=== PATIENT | male | born 1975 | race Asian ===

== ENCOUNTER 2016-12-27 10:15 | Emergency (ER) | payer OTHER ==
[2016-12-27] MEDS ORDERED: Aspirin Low Dose CHEW TAB* 81 MG PO ONE (10:32)
[2016-12-27 10:45] LABS: Hematocrit 42 % (42-52); Hemoglobin 13.9 g/dl (14.0-18.0); Mean Corpuscular HGB Conc 33 g/dl (31-36); Mean Corpuscular Hemoglobin 27 pg (27-31); Mean Corpuscular Volume 82 fL (80-94); Mean Platelet Volume 9 um3 (7.4-10.4); Red Blood Count 5.13 10^6/ul (4.0-5.4); Red Cell Distribution Width 14 % (10.5-15); White Blood Count 6.3 10^3/ul (3.5-10.8)
[2016-12-27] MEDS ORDERED: NS 0.9% 1000 ML* 3,000 ML IV ONE (10:50)
[2016-12-27 10:58] LABS: Troponin I 0.01 ng/mL (<0.04)
[2016-12-27 11:03] LABS: Albumin 3.7 g/dL (3.2-5.2); BUN/Creatinine Ratio 15.6 (8-20); EGFR African American 96.4 (>60); EGFR Non-African American 74.9 (>60); Globulin 2.8 g/dL (2-4); Potassium 3.8 mmol/L (3.5-5.0); Total Bilirubin 0.6 mg/dL (0.2-1.0); Total Protein 6.5 g/dL (6.4-8.9)
[2016-12-27] MEDS ORDERED: Iohexol 350* (CONTRAST) 500 ML MDV IV ONE (11:08)
--- NOTE | 2016-12-27 12:03 | RAD ---
INDICATION: Chest pain, syncope, travel history. COMPARISON: Correlation is made with a prior chest x-ray study of the same date. TECHNIQUE: A CT angiogram of the chest was performed with intravenous following intravenous injection of 67 ml of Omnipaque 350 nonionic contrast. Contiguous axial sections were obtained from the lung apices through the lung bases. Images were reconstructed in the coronal and sagittal planes. FINDINGS: There is relatively homogeneous opacification of the pulmonary arteries. No intraluminal filling defect or pulmonary embolism is seen. The heart is within normal limits in size. No pericardial effusion is present. The thoracic aorta is normal in caliber. No significant enlarged mediastinal or hilar lymph nodes are seen. There are several small bilateral pulmonary nodules present in the left upper lobe, right lower lobe and right middle lobes measuring up to 5 mm in size. The lungs are otherwise clear. No pleural effusion or pneumothorax is seen. No significant focal osseous abnormality is seen. IMPRESSION: 1. NO EVIDENCE FOR PULMONARY EMBOLISM. 2. SMALL BILATERAL PULMONARY NODULES. RECOMMEND A FOLLOW-UP NONCONTRAST CT OF THE CHEST IN 6 MONTHS TIME TO DEMONSTRATE ABILITY.
[2016-12-27] MEDS ORDERED: Acetaminophen TAB* 325 MG PO PRN (14:07)
[2016-12-27] MEDS ORDERED: NS 0.9% 1000 ML* 1,000 ML IV SCH (14:15)
[2016-12-27 14:43] LABS: TSH (Thyroid Stimulating Horm) 0.76 mcIU/mL (0.34-5.60)
[2016-12-27] MEDS ORDERED: Aspirin TAB* 325 MG PO SCH (15:00)
[2016-12-27 15:24] VITALS: BP 112/64
--- NOTE | 2016-12-27 15:45 | RAD ---
Indication: Syncope. Single frontal view of the chest performed at 1135 hours was reviewed. No prior study is available for comparison. No mediastinal shift is noted. Heart is of normal size and configuration. Lung [place] appear clear. IMPRESSION: NO ACTIVE CARDIOPULMONARY DISEASE IS NOTED.
--- NOTE | 2016-12-27 21:54 | CONS ---
CONSULTATION REPORT: DATE OF CONSULT: 12/27/16 PRIMARY CARE PHYSICIAN: Dr. Gayathri Lewis. REASON FOR CONSULTATION: The patient was recommended for admission by Dr. Briceno due to syncope and chest pain. HISTORY OF PRESENT ILLNESS: Mr. Dlilard is a 41-year-old male with history significant for seasonal allergies only, presented to the hospital after he had near syncopal episode today. The patient stated that he got up in the morning and he was in the kitchen making himself a cup of coffee, but he felt lightheaded ever since he got up. He stated that he was holding a cup of coffee and then, he does not remember anything for a couple of seconds. He stated that he regained consciousness when he found himself stumbling down and spilling the coffee all over the kitchen floor. He managed to sit down and not hit the ground. His prodromal symptoms were lightheadedness, but he denies any shortness of breath or chest pain prior to the event; but after the event occurred, he did have substernal chest pain that was brief and resolved spontaneously. The chest pain was not pleuritic and was substernal, pressure like. When the patient was evaluated in the ED, his blood pressures were in the 80s. He was in sinus bradycardia throughout his evaluation. CT angiogram of the chest was obtained, which ruled out PE and showed multiple small bilateral pulmonary nodules. Dr. Briceno recommended the patient for overnight observation with transthoracic echocardiogram in the morning. PAST MEDICAL HISTORY: Seasonal allergies. MEDICATIONS: As an outpatient include: 1. Nasonex 1 spray nasally daily. 2. Zyrtec 10 mg daily. ALLERGIES: No known drug allergies. FAMILY HISTORY: Positive for the grandfather with heart disease in his 60s. SOCIAL HISTORY: The patient is an medicaid specialist. He does not smoke or drink alcohol. There is no history of illegal drug use. The patient used to run several miles a day, but he lowered it down to 3 times a week since his child was born a year ago. His surrogate decision maker is his , Mrs. Dillard. Please note that the patient also just came back from [place] and his flight was for several hours on 12/25/16. REVIEW OF SYSTEMS: Please see history of present illness. The patient's stated that he had bull game for 2 hours and he was an active participant and then he worked in the yard for several hours yesterday. She thinks that he did not get enough hydration over the course of the past 24 hours. The patient agrees with the . He has not had any syncopal episodes in the past. He denies any chest pain before or after. His exercise tolerance is excellent and he still runs several miles 3 times a week. All the remaining 14 systems were reviewed with the patient and were otherwise negative. PHYSICAL EXAM: Not performed since the patient prefers to discuss all his options and possibility of hospitalization prior to being admitted. DIAGNOSTIC STUDIES/LAB DATA: Sodium of 138, potassium 3.8, chloride 105, carbon dioxide 29, BUN 17, creatinine 1.09. Liver functions unremarkable. Lactic acid 1.4. TSH of 0.76. White blood cell count of 6.3, hemoglobin of 13.9, hematocrit of 42, and platelets of 151. EKG showed sinus tachycardia with elevated J point. No evidence of . CT angiogram of the chest showed no PE, but small bilateral pulmonary nodules. Recommended follow up with chest CT in 6 months. ASSESSMENT AND PLAN: A 41-year-old male with a history of very good exercise tolerance who presents with chest pain and hypotension and near syncope/syncope today. The patient was recommended to stay for overnight observation with transthoracic echocardiogram, monitoring on telemetry monitored bed, and exercise cardiac stress test in the morning. The risks of cardiac arrhythmia and sudden or myocardial infarction were discussed with the patient. Also , the findings of pulmonary nodules on CT angiogram was discussed with the patient. The patient noted that it may be due to benign disease and possibility of coccidioidomycosis due to the patient's recent trip in [place], but also the recommendations of 6-month followup CT of the chest were discussed with the patient. At this point, the patient was aware of the risks and he requested to sign out from the hospital against medical advice. His was present and agreed with the patient's decision. At this point, the patient is going to sign out against medical advice and leave the hospital. TIME SPENT: Approximately 45 minutes were spent on the above-mentioned consultation. CC: Dr. Gayathri Lewis; Dr. Briceno* [id number]/CPS #: [id number] [facility]
[2016-12-28] MEDS ORDERED: Aspirin TAB* 325 MG PO SCH (09:00)
--- NOTE | 2016-12-29 08:26 | ED ---
Maddy Lewis Matthew, scribed for Wesly Briceno MD on 12/27/16 at 1123 . HPI Chest Pain - HPI Summary HPI Summary: A 41 y/o male presents to the ED with chest tightness since 05:15 this morning. He states that he was making coffee this morning, when he felt dizzy and had a syncopal episode, which lasted for a few seconds. He denies trauma. He then sat down and began to have chest pain described as tightness, continuing dizziness, and nausea. The patient denies trauma, rhinorrhea, fever, diaphoresis, chills, diarrhea, vomiting, abdominal pain, urinary retention, black stools, and blood w / stool. The chest pain is unaffected by deep breaths. The patient just returned from [place] on 12/25. The states that patient wasn't drink enough water while in [place]. Yesterday, the patient also mowed the lawn for 1.5 hours. Currently, the patient only takes nasonex. No Hx of HTN, HLD, or diabetes. FHx of CAD. The patient does not smoke or drink. The patient has a Hx of syncopal episode from allergies 15 years ago, but he states that hasn't happened recently after starting nasonex. The patient received aspirin and nitroglcerin by EMS. - History of Current Complaint Chief Complaint: EDChestPainROMI Time Seen by Provider: 12/27/16 10:31 Hx Obtained From: Patient Onset/Duration: Started Hours Ago, Atraumatic, Still Present Time of Onset: 05:15 Timing: Constant Initial Severity: Mild Current Severity: Mild Pain Intensity: 2 Pain Scale Used: 0-10 Numeric Chest Pain Radiates: No Character: Tightness Associated Signs and Symptoms: Positive: Chest Pain - described as tightness, Weakness, Dizziness, Syncope, Nausea, Other: - decreased appetite. Negative: Fever, Chills, Diaphoresis - Allergy/Home Medications Allergies/Adverse Reactions: Allergies Allergy/AdvReac Type Severity Reaction Status Date / Time No Known Allergies Allergy Verified 12/27/16 10:28 Home Medications: Home Medications Cetirizine* [ZyrTEC 10 MG TAB*] 10 mg PO BEDTIME 12/27/16 [History Confirmed 09/14] Mometasone NASAL (NF) [Nasonex (NF)] 1 spray NASAL DAILY 12/27/16 [History Confirmed 12/27/16] PMH/Surg Hx/FS Hx/Imm Hx Previously Healthy: Yes Endocrine/Hematology History: Denies: Hx Diabetes Cardiovascular History: Denies: Hx Hypercholesterolemia, Hx Hypertension Infectious Disease History: No Infectious Disease History: Denies: Traveled Outside the [place] in Last 30 Days - Family History Known Family History: Positive: Cardiac Disease - Social History Alcohol Use: None Substance Use Type: Reports: None Smoking Status (MU): Never Smoked Tobacco Review of Systems Constitutional: Other - decreased appetite Negative: Fever, Chills, Skin Diaphoresis Eyes: Negative Negative: Erythema ENT: Negative Negative: Sore Throat Positive: Chest Pain - described as tightness. Negative: Palpitations Respiratory: Negative Negative: Shortness Of Breath, Cough Positive: Nausea. Negative: Abdominal Pain, Vomiting, Diarrhea Genitourinary: Negative Negative: dysuria, hematuria Musculoskeletal: Negative Negative: Myalgia, Edema Skin: Negative Negative: Rash Neurological: Other - Dizziness Positive: Syncope Psychological: Normal All Other Systems Reviewed And Are Negative: Yes Physical Exam Triage Information Reviewed: Yes Vital Signs On Initial Exam: Initial Vitals Temp Pulse Resp BP Pulse Ox 98.3 F 53 14 99/66 99 12/27/16 10:19 12/27/16 10:19 12/27/16 10:19 12/27/16 10:19 12/27/16 10:19 Vital Signs Reviewed: Yes Appearance: Positive: Well-Appearing, No Pain Distress Skin: Positive: Warm, Dry Head/Face: Positive: Other - Normocephalic; Atraumatic Eyes: Positive: Conjunctiva Clear ENT: Positive: Normal ENT inspection Dental: Negative: Cervical Lymphadenopathy Neck: Positive: No Lymphadenopathy, Other: - Full ROM; No JVD Respiratory/Lung Sounds: Positive: Other - Normal Effort; No respiratory distress. Negative: Rales, Rhonchi, Stridor, Tracheal Deviation, Wheezes Cardiovascular: Positive: RRR, Other - Rhythm regular, rate normal, Heart sounds normal; Intact distal pulses; The pedal pulses are 2+ and symmetric. Radial pulses are 2+ and symmetric. Negative: Murmur Abdomen Description: Positive: Nontender, Soft, Other: - No Rebound. Negative: Distended, Guarding Bowel Sounds: Positive: Present Musculoskeletal: Negative: Edema Left, Edema Right Neurological: Positive: Alert, Oriented to Person Place, Time Psychiatric: Positive: Affect/Mood Appropriate - Mika Coma Scale Coma Scale Total: 15 Diagnostics - Vital Signs Vital Signs Temp Pulse Resp BP Pulse Ox 12/27/16 10:24 98.3 F 54 16 100/69 100 12/27/16 10:23 100/69 12/27/16 10:19 98.3 F 53 14 99/66 99 - Laboratory Result Diagrams: 12/27/16 10:20 12/27/16 10:20 Lab Statement: Any lab studies that have been ordered have been reviewed, and results considered in the medical decision making process. - Radiology CXR Xray Interpretation: No Acute Changes - IMPRESSION: NO ACTIVE CARDIOPULMONARY DISEASE IS NOTED. Radiology Interpretation Completed By: Radiologist - CT CTA Chest CT Interpretation: No Acute Changes - IMPRESSION: 1. NO EVIDENCE FOR PULMONARY EMBOLISM. 2. SMALL BILATERAL PULMONARY NODULES. RECOMMEND A FOLLOW-UP NONCONTRAST CT OF THE CHEST IN 6 MONTHS TIME TO DEMONSTRATE ABILITY. CT Interpretation Completed By: Radiologist - EKG 10:17 Cardiac Rate: Bradycardia - 51 bpm EKG Rhythm: Sinus Bradycardia EKG Interpretation: No STEMI 13:32 Cardiac Rate: Bradycardia - 39 bpm EKG Rhythm: Sinus Bradycardia ST Segment: Normal EKG Interpretation: No STEMI Re-Evaluation - Re-Evaluation First Eval Re-Evaluation Time: 13:40 Change: Improved Comment: The patient's chest pain has resolved. Systolic BP in the 100s. The patient states that he is a runner and his HR is normally in the 40s. Chest Pain Course/Dx - Course Assessment/Plan: A 41 y/o male presents to the ED with chest tightness since 05: 15 this morning. He states that he was making coffee this morning, when he felt dizzy and had a syncopal episode, which lasted for a few seconds. He denies trauma. He then sat down and began to have chest pain described as tightness, continuing dizziness, and nausea. The patient denies trauma, rhinorrhea, fever, diaphoresis, chills, diarrhea, vomiting, abdominal pain, urinary retention, black stools, and blood w/ stool. The chest pain is unaffected by deep breaths. The patient just returned from [place] on 12[place]25. The states that patient wasn't drink enough water while in [place]. Yesterday, the patient also mowed the lawn for 1.5 hours. Currently, the patient only takes Nasonex. No Hx of HTN , HLD, or diabetes. FHx of CAD. The patient does not smoke or drink. Labs were reviewed and show troponin of 0.01. Chest CTA shows no evidence for pulmonary embolism. 2. small bilateral pulmonary nodules. recommend a follow-up noncontrast ct of the chest in 6 months time to demonstrate ability. EKG shows sinus brachycardia at 51 bpm. CXR showed no active cardiopulmonary disease. On re-eval the patients chest pain had resolved. In the ED course, the patient was given Tylenol, aspirin, and IV fluids. Discussed the case with Dr. Edward who will admit the patient into his care. - Diagnoses Provider Diagnoses: SYNCOPE/CP, AMA - Provider Notifications Discussed Care Of Patient With: Dr. Edward (Hospitalist) at 14:06 -- Notified of patient's history and will admit the patient into his services. Discharge - Discharge Plan Condition: Stable Disposition: AGAINST MEDICAL ADVICE Referrals: Gayathri Mayer MD [Primary Care Provider] - The documentation as recorded by the Maddy silvestre Matthew accurately reflects the service I personally performed and the decisions made by , Wesly Briceno MD.
== END 2016-12-27 15:27 | disposition left against medical advice (07) ==
LOC: ED 10:15 → UNDOADMOB 14:07 → MEDTELE 14:07 → ED 15:27
DX: R07.9 Chest pain, unspecified (principal); R55 Syncope and collapse; R91.8 Other nonspecific abnormal finding of lung field; R00.1 Bradycardia, unspecified
CPT/HCPCS: 36415; 71010; 71275; 80053; 83605; 84443; 84484; 85025; 93005; 96360; 96361; 99283; Q9967

== ENCOUNTER 2016-12-31 10:14 | Observation (INO) | payer OTHER ==
[2016-12-31] MEDS: NS 0.9% 1000 ML* 2,000 ML IV ONE ×2 (11:35→12:27)
[2016-12-31 12:03] LABS: Urine Bacteria Absent (Absent); Urine Bilirubin Negative (Negative); Urine Glucose Negative (Negative); Urine Nitrite Negative (Negative)
[2016-12-31 12:05] LABS: Hematocrit 45 % (42-52); Hemoglobin 15.1 g/dl (14.0-18.0); Mean Corpuscular HGB Conc 34 g/dl (31-36); Mean Corpuscular Hemoglobin 27 pg (27-31); Mean Corpuscular Volume 81 fL (80-94); Mean Platelet Volume 9 um3 (7.4-10.4); Red Blood Count 5.54 10^6/ul (4.0-5.4); Red Cell Distribution Width 14 % (10.5-15); White Blood Count 6.4 10^3/ul (3.5-10.8)
[2016-12-31 12:15] LABS: ALT 36 U/L (7-52); AST 22 U/L (13-39); Albumin 4.2 g/dL (3.2-5.2); Alkaline Phosphatase 70 U/L (34-104); Anion Gap 4 mmol/L (2-11); BUN/Creatinine Ratio 15.2 (8-20); Blood Urea Nitrogen 14 mg/dL (6-24); CO2 Carbon Dioxide 27 mmol/L (22-32); Calcium 9.5 mg/dL (8.6-10.3); Chloride 105 mmol/L (101-111); Creatine Kinase 86 U/L (10-223); EGFR African American 117.2 (>60); EGFR Non-African American 91.1 (>60); Glucose 100 mg/dL (70-100); Potassium 3.9 mmol/L (3.5-5.0); Sodium 136 mmol/L (133-145); Total Protein 7.2 g/dL (6.4-8.9)
[2016-12-31 12:33] LABS: TSH (Thyroid Stimulating Horm) 1.15 mcIU/mL (0.34-5.60)
[2016-12-31] MEDS ORDERED: Acetaminophen TAB* 325 MG PO PRN (14:21)
[2016-12-31] MEDS ORDERED: Ondansetron INJ* 2 MG/ML VIAL IV PRN (14:21)
[2016-12-31] MEDS ORDERED: Albuterol 2.5 MG/3 ML NEB.SOL* (0.083%) INH PRN (14:48)
[2016-12-31 14:53] LABS: Alcohol < 10 mg/dL (<10)
--- NOTE | 2016-12-31 15:55 | ED ---
Jackie Lewis Auryana, scribed for Aayush Downs MD on 12/31/16 at 1221 . Dizziness - HPI Summary HPI Summary: 41 year old male presents with dizziness and near syncope starting at 08:50 today at work lasting 5-10 minutes. He reports that when he began to feel dizzy today, he also had an unsteady gait , buzzing in the ears, blurred vision - states vision becomes yellow, palpitations, and neck pain that radiated into the neck. He denies any biting of tongue, urinary incontinence, fever, night sweats, and chills, lightheadedness with sitting up, any weight changes, any spinning sensations or LOC. He has had 3-4 episodes over the past week. He was seen 12/27/16 here at [facility] ; 12/29/16 at [facility]- observation overnight. Negative CT, EKG, Labs, and Echo. Increased HR (140-160) caught on EKG in ambulance ride to [facility]. On tuesday his episode included a few second black out but denies any other episodes with LOC. Reports CP with episode on . Reports that he met with a heart coordinator who found no significant findings. PMHx of palpitations (about 5 years ago - lasted about 3 weeks at that time) and Valley Fever with lung nodules - diagnosed in [place] - denies any respiratory symptoms. He denies an PMHx of seizure, HTN, HLD, DM, or any deafness. FMHx is significant for VT ( father), 'heart issues' (mother), and ocular aneurysm- no family history of seizures. - History Of Current Complaint Stated Complaint: DIZZINESS Time Seen by Provider: 12/31/16 10:35 Hx Obtained From: Patient Last Known Well Date: 12/27/16 Onset/Duration: Still Present Timing: Constant - 08:50 Severity Initially: Mild Severity Currently: Mild Character: Dizzy Associated Signs And Symptoms: Positive: Tinnitus, Palpitations, Unsteady Gait, Visual Changes, Other: - see HPI. Negative: Fever, Chills, Inability to Walk, Slurred Speech Related History: Similar Episode/Dx as - see HPI - Allergies/Home Medications Allergies/Adverse Reactions: Allergies Allergy/AdvReac Type Severity Reaction Status Date / Time No Known Allergies Allergy Verified 12/27/16 10:28 PMH/Surg Hx/FS Hx/Imm Hx Endocrine/Hematology History: Denies: Hx Diabetes Cardiovascular History: Denies: Hx Hypercholesterolemia, Hx Hypertension History: Denies: Hx Renal Disease Infectious Disease History: Denies: Traveled Outside the [place] in Last 30 Days - Family History Known Family History: Positive: Cardiac Disease, Other - ocular aneurysm - Social History Occupation: Employed Full-time Lives: With Family Alcohol Use: None Substance Use Type: Reports: None Smoking Status (MU): Never Smoked Tobacco Review of Systems Positive: Other - unsteay gate. Negative: Fever, Chills Positive: Blurred Vision Positive: Other - tinnitis Positive: Palpitations Respiratory: Negative Gastrointestinal: Negative Genitourinary: Negative Positive: Myalgia Skin: Negative Positive: Syncope - near Psychological: Normal All Other Systems Reviewed And Are Negative: Yes Physical Exam - Summary Physical Exam Summary: The patient is well-nourished in no acute distress and in no acute pain. The skin is warm and dry and skin color reflects adequate perfusion. HEENT: The head is normocephalic and atraumatic. The pupils are equal and reactive. The conjunctivae are clear and without drainage. Nares are patent and without drainage. Mouth reveals moist mucous membranes and the throat is without erythema and exudate. The external ears are intact. The ear canals are patent and without drainage. The tympanic membranes are intact. Neck is supple with full range of motion and non-tender. There are no carotid bruits. There is no neck vein distension. Respiratory: Chest is non-tender. Lungs are clear to auscultation and breath sounds are symmetrical and equal. Cardiovascular: Hear is regular rate and rhythm. There is no murmur or rub auscultated. There is no peripheral edema and pulses are symmetrical and equal. Abdomen: The abdomen is soft and non-tender. There are normal bowel sounds heard in all four quadrants and there is no organomegaly palpated. Musculoskeletal: There is no back pain noted. Extremities are non-tender with full range of motion. There is good capillary refill. There is no peripheral edema or calf tenderness elicited. Neurological: Patient is alert and oriented to person, place and time. The patient has symmetrical motor strength in all four extremities. Cranial nerves are grossly intact. Deep tendon reflexes are symmetrical and equal in all four extremities. Psychiatric: The patient has an appropriate affect and does not exhibit any anxiety or depression. Triage Information Reviewed: Yes Vital Signs On Initial Exam: Initial Vitals Temp Pulse Resp BP Pulse Ox 98.5 F 56 16 122/80 100 12/31/16 10:42 12/31/16 10:42 12/31/16 10:42 12/31/16 10:42 12/31/16 10:42 Vital Signs Reviewed: Yes Diagnostics - Vital Signs Vital Signs Temp Pulse Resp BP Pulse Ox 12/31/16 14:00 52 14 113/75 98 12/31/16 13:49 55 16 111/67 12/31/16 13:43 62 13 111/67 99 12/31/16 13:30 64 16 87/44 98 12/31/16 13:00 64 13 106/70 100 12/31/16 12:59 106/70 12/31/16 12:58 52 16 100 12/31/16 12:30 65 14 100/65 98 12/31/16 12:00 51 15 111/69 97 12/31/16 11:30 54 17 108/68 97 12/31/16 11:15 61 15 97 12/31/16 11:13 109/72 12/31/16 11:00 98.5 F 56 16 122/80 100 12/31/16 10:42 98.5 F 56 16 122/80 100 - Laboratory Lab Results: Lab Results 12/31/16 12/31/16 12/31/16 Range/Units 11:14 11:32 11:32 WBC 6.4 (3.5-10.8) 10^3/ul RBC 5.54 H (4.0-5.4) 10^6/ul Hgb 15.1 (14.0-18.0) g/dl Hct 45 (42-52) % MCV 81 (80-94) fL MCH 27 (27-31) pg MCHC 34 (31-36) g/dl RDW 14 (10.5-15) % Plt Count 152 (150-450) 10^3/ul MPV 9 (7.4-10.4) um3 Neut % (Auto) 69.7 (38-83) % Lymph % (Auto) 22.4 L (25-47) % [place]oup % (Auto) 4.2 (1-9) % Eos % (Auto) 2.8 (0-6) % Baso % (Auto) 0.9 (0-2) % Absolute Neuts (auto) 4.4 (1.5-7.7) 10^3/ul Absolute Lymphs (auto) 1.4 (1.0-4.8) 10^3/ul Absolute Monos (auto) 0.3 (0-0.8) 10^3/ul Absolute Eos (auto) 0.2 (0-0.6) 10^3/ul Absolute Basos (auto) 0.1 (0-0.2) 10^3/ul Absolute Nucleated RBC 0 10^3/ul Nucleated RBC % 0.1 INR (Anticoag Therapy) 0.97 (0.89-1.11) APTT 28.5 (26.0-36.3) seconds Sodium (133-145) mmol/L Potassium (3.5-5.0) mmol/L Chloride (101-111) mmol/L Carbon Dioxide (22-32) mmol/L Anion Gap (2-11) mmol/L BUN (6-24) mg/dL Creatinine (0.67-1.17) mg/dL Est GFR ( Amer) (>60) Est GFR (Non-Af Amer) (>60) BUN/Creatinine Ratio (8-20) Glucose (70-100) mg/dL Lactic Acid (0.5-2.0) mmol/L Calcium (8.6-10.3) mg/dL Magnesium (1.9-2.7) mg/dL Total Bilirubin (0.2-1.0) mg/dL AST (13-39) U/L ALT (7-52) U/L Alkaline Phosphatase (34-104) U/L Total Creatine Kinase (10-223) U/L Troponin I (<0.04) ng/mL B-Natriuretic Peptide ( - 100) pg/mL Total Protein (6.4-8.9) g/dL Albumin (3.2-5.2) g/dL Globulin (2-4) g/dL Albumin/Globulin Ratio (1-3) TSH (0.34-5.60) mcIU/mL Cortisol mcg/dL Urine Color Straw Urine Appearance Clear Urine pH 7.0 (5-9) Ur Specific [place] 1.006 L (1.010-1.030) Urine Protein Negative (Negative) Urine Ketones Negative (Negative) Urine Blood 1+ H (Negative) Urine Nitrate Negative (Negative) Urine Bilirubin Negative (Negative) Urine Urobilinogen Negative (Negative) Ur Leukocyte Esterase Negative (Negative) Urine WBC (Auto) Absent (Absent) Urine RBC (Auto) 1+(3-5/hpf) H (Absent) Urine Bacteria Absent (Absent) Urine Glucose Negative (Negative) Serum Alcohol (<10) mg/dL 12/31/16 12/31/16 12/31/16 Range/Units 11:32 11:32 11:32 WBC (3.5-10.8) 10^3/ul RBC (4.0-5.4) 10^6/ul Hgb (14.0-18.0) g/dl Hct (42-52) % MCV (80-94) fL MCH (27-31) pg MCHC (31-36) g/dl RDW (10.5-15) % Plt Count (150-450) 10^3/ul MPV (7.4-10.4) um3 Neut % (Auto) (38-83) % Lymph % (Auto) (25-47) % [place] % (Auto) (1-9) % Eos % (Auto) (0-6) % Baso % (Auto) (0-2) % Absolute Neuts (auto) (1.5-7.7) 10^3/ul Absolute Lymphs (auto) (1.0-4.8) 10^3/ul Absolute Monos (auto) (0-0.8) 10^3/ul Absolute Eos (auto) (0-0.6) 10^3/ul Absolute Basos (auto) (0-0.2) 10^3/ul Absolute Nucleated RBC 10^3/ul Nucleated RBC % INR (Anticoag Therapy) (0.89-1.11) APTT (26.0-36.3) seconds Sodium 136 (133-145) mmol/L Potassium 3.9 (3.5-5.0) mmol/L Chloride 105 (101-111) mmol/L Carbon Dioxide 27 (22-32) mmol/L Anion Gap 4 (2-11) mmol/L BUN 14 (6-24) mg/dL Creatinine 0.92 (0.67-1.17) mg/dL Est GFR ( Amer) 117.2 (>60) Est GFR (Non-Af Amer) 91.1 (>60) BUN/Creatinine Ratio 15.2 (8-20) Glucose 100 (70-100) mg/dL Lactic Acid 0.7 (0.5-2.0) mmol/L Calcium 9.5 (8.6-10.3) mg/dL Magnesium 2.0 (1.9-2.7) mg/dL Total Bilirubin 0.40 (0.2-1.0) mg/dL AST 22 (13-39) U/L ALT 36 (7-52) U/L Alkaline Phosphatase 70 (34-104) U/L Total Creatine Kinase 86 (10-223) U/L Troponin I 0.00 (<0.04) ng/mL B-Natriuretic Peptide 31 ( - 100) pg/mL Total Protein 7.2 (6.4-8.9) g/dL Albumin 4.2 (3.2-5.2) g/dL Globulin 3.0 (2-4) g/dL Albumin/Globulin Ratio 1.4 (1-3) TSH 1.15 (0.34-5.60) mcIU/mL Cortisol 6.84 mcg/dL Urine Color Urine Appearance Urine pH (5-9) Ur Specific [place] (1.010-1.030) Urine Protein (Negative) Urine Ketones (Negative) Urine Blood (Negative) Urine Nitrate (Negative) Urine Bilirubin (Negative) Urine Urobilinogen (Negative) Ur Leukocyte Esterase (Negative) Urine WBC (Auto) (Absent) Urine RBC (Auto) (Absent) Urine Bacteria (Absent) Urine Glucose (Negative) Serum Alcohol < 10 (<10) mg/dL Result Diagrams: 12/31/16 11:32 12/31/16 11:32 Lab Statement: Any lab studies that have been ordered have been reviewed, and results considered in the medical decision making process. - EKG 10:27 EKG Interpretation: unchanged from 12/27/16 EKG at 10:17 Re-Evaluation - Re-Evaluation First Eval Re-Evaluation Time: 13:11 - Discussed labs, EKG, and plan of action to admit patient Change: Unchanged Comment: patient agrees on admission - will consuilt Dr. Lambert Dizzy Course/Dx - Course Assessment/Plan: 41 year old male presents with dizziness and near syncrope starting 08:50 today lasting 5-10 minutes. He also has blurred vision, palpitations, neck/head pain, unsteady gait and tinnitis. He has had previous episodes in the past, seen here at [facility] and [place] this week. No significant findings to explain dizzy episodes. pt was admitted at [facility] and had negative echocardiogram. Lab work ordered - low Lymph% but otherwise unremarkable. UA ordered - RBC present. EKG ordered - unchanged. Patient agrees with recommendation to admit- consult Dr. Lambert. Daniel Rosas -in to consult 14: 00 and agrees to admit. - Diagnoses Differential Diagnosis/HQI/PQRI: Anxiety, Coronary Artery Disease, Dysrhythmia, Hypovolemia, Metabolic Abnormality, Seizure Provider Diagnoses: Chest pain, Dizziness - Provider Notifications Discussed Care Of Patient with: Dr. Lambert Time Discussed With Above Provider: 13:42 - agrees to admit Discharge - Discharge Plan Condition: Stable Disposition: ADMITTED TO [facility] The documentation as recorded by the Jackie silvestre Auryana accurately reflects the service I personally performed and the decisions made by , Aayush Downs MD.
--- NOTE | 2016-12-31 16:44 | HP ---
AMENDED REPORT NOW INCLUDES COSIGNER DESIGNATION - ESIGNED BEFORE ADJUSTMENT HISTORY AND PHYSICAL: DATE OF ADMISSION: 12/31/16 PRIMARY CARE PROVIDER: Erika Alamo NP. ATTENDING PHYSICIAN WHILE IN THE HOSPITAL: Dr. Juan Lambert * (report dictated by Daniel Rosas NP). CONSULTING NEUROLOGIST: Dr. Garcia. CONSULTING OUTBOARD MOTORBOAT RIGGER: Dr. Vu. CHIEF COMPLAINT: 1. Dizziness. 2. Palpitations. HISTORY OF PRESENT ILLNESS: Mr. Dillard is a 41-year-old male patient who carries a history of seasonal allergies and seasonal asthma. He comes to the hospital now. It is the third time he has been evaluated in the hospital setting for similar complaints. He says recently he traveled to [place]. Shortly thereafter traveling to [place], he noticed on Tuesday, the , that he got up in the morning, went to the kitchen to make a cup of coffee. He felt lightheaded ever since he had gotten up and he was holding the cup of coffee and then he does not remember anything for a couple of seconds. He says he regained consciousness and found himself stumbling down, and spilling the coffee all over the floor. He came into the ER on the . He says that he did have prodromal symptoms of lightheadedness. He denied any shortness of breath or chest pain, but he did have substernal chest pain after the episode resolved. He tells me he came in, was evaluated on the , had a CTA of the chest which was negative with the exception of pulmonary nodules. He actually signed out AMA unfortunately, and then on the , he went to [place], was evaluated there, actually was admitted overnight. He presented to the emergency department there for dizziness, lightheadedness, presyncope, as well as chest tightness. He woke up in the morning at 5:30, this was on Tuesday. He woke up again and had another episode where he felt he had palpitations and chest tightness and shortness of breath and this had happened again in the morning on the . He was evaluated in [place]. He saw Dr. Samayoa. He had an echo at that point and was deemed to be pretty normal. Ultimately, he was discharged for further evaluation with his primary. He felt better yesterday and today he felt good enough to go to work. He went to work. While at work, he was standing up. He was going to talk to his co-workers. He started feeling symptoms again where he was lightheaded. He was dizzy. He felt palpitations. He felt short of breath, felt like he was going to faint. He did not faint. He sat down. The symptoms went away and he again afterwards had substernal chest pain. He was told at one point that he had a heart rate in the 140s and 160s by EMS when he was going to [place], although [place] documentation does not have a strip here of this event. He states that he does drink caffeine. He denies having any chest pain currently. He says he feels well at the present and he says the only time he passed out was on Tuesday. He denies any changes in medications and denied any drug use to me. He came to the ER, was evaluated by Dr. Downs. There was concern because of recurrence of symptoms. So, we were asked to evaluate for admission. PAST MEDICAL HISTORY: Significant for: 1. Allergies. 2. Asthma. PAST SURGICAL HISTORY: Denied. HOME MEDICATIONS: According to him include: 1. Cetirizine 10 mg p.o. daily. 2. Nasonex 1 spray both nares daily. ALLERGIES TO MEDICATIONS: Include no known drug allergies. FAMILY HISTORY: His mother had an aneurysm. Father was healthy. SOCIAL HISTORY: He does not smoke. Does not drink. He works at [employer]. Surrogate decision maker is his . REVIEW OF SYSTEMS: There is no documented fever. He denied having any significant weight change. There was no double vision. No ear discharge. No rhinorrhea. No sore throat. No thyroid enlargement. There was chest pain after these events. He denies having any orthopnea. No nocturnal dyspnea. No abdominal pain. No nausea. No vomiting. No dysuria. No frequency. There was loss of consciousness. No pruritus. No skin ulcerations. Review of 14 systems completed, all others negative. PHYSICAL EXAMINATION GENERAL: At this time, Mr. Dillard is a 41-year-old male patient. He is sitting in the ER stretcher. He does not appear to be in any acute distress. VITAL SIGNS: Blood pressure 113/75, pulse 57, respirations 16, O2 sat 98%, and temperature 98.5. HEENT: Head atraumatic and normocephalic. Eyes: EOMs are intact. Sclerae are anicteric and not pale. Throat: Oral mucosa appears to be moist. No oropharyngeal erythema. NECK: Supple. LUNGS: Clear to auscultation bilaterally. No wheezes, rales, or rhonchi. HEART: Sounds S1, S2. Regular rate and rhythm. No murmurs, rubs, or gallops. ABDOMEN: Soft, flat, and nontender. Bowel sounds present. EXTREMITIES: Pulses were 2+ throughout. He is able to move all 4 extremities with 5/5 strength. NEUROLOGIC: The patient is awake, he is alert, and he is oriented x3. His tongue is midline. Engineer System Administrator are equal. He had no gross focal deficits. He is moving all 4 extremities with 5/5 strength. Speech is clear. [id number] intact bilaterally. [id number] intact bilaterally. SKIN: Intact. LABORATORY DATA AND DIAGNOSTIC STUDIES: Labs today reveal WBC 6.4, RBC of 5.54 , hemoglobin 15.1, hematocrit 45, platelet count of 152. The INR was 0.97. PTT of 28.5. Sodium 136, potassium 3.9, chloride 105, bicarb 27, BUN 14, creatinine of 0.92, glucose 100, lactic 0.7, calcium 9.5. Total bili 2.0, AST 22, ALT 36, alk phos 70. Troponin 0.0. BNP was 31. His urine was obtained. It was essentially negative. He had a CTA of the chest done which showed no evidence of pulmonary emboli. He had an EKG which showed sinus bradycardia with a rate of 54. No ST elevations or T- wave inversions attributed to his previous EKG. Appears to be similar and the rate is faster now. Old medical records were reviewed. ASSESSMENT AND PLAN: Mr. Dillard is a 41-year-old male patient coming into the ER today with complaints of an episode where he felt like he was going to faint again. This is his fifth episode this week. Hospitalist service was asked to evaluate for admission. He will be admitted under observation status for: 1. Presyncope, palpitations with associated chest discomfort: At this point, I touched base with Dr. Vu who agrees to evaluate the patient. I think we need to try to catch one of these events on telemetry and see what we see. I also think that a long-term event monitoring may be warranted and also, Dr. Vu recommended a stress echo which I have ordered. I will check his cortisol. In addition to this, we will cycle his troponins. I will get a Lyme panel and I will place him on telemetry and we will follow. 2. History of asthma and seasonal allergies: Continue meds as prescribed. I have ordered p.r.n. albuterol. 3. DVT prophylaxis: Low risk. He will be placed on SCDs. 4. Fluids, electrolytes, and nutrition: He is n.p.o. for the test and after the test, he can have a regular diet. 5. Code status: Full code. TIME SPENT: Time spent on the admission was 60 minutes; greater than half the time was spent [id number] with the patient obtaining my history and physical, other half the time spent going over the plan of care with the patient and implementing plan of care. I did discuss the plan of care with my attending, Dr. Lambert; he is in agreement. DANIEL ROSAS NP CC: Erika Alamo NP; Dr. Garcia; Dr. Vu * [id number]/[facility] #: [id number] [facility]
[2016-12-31 19:24] LABS: Urine Bilirubin Negative (Negative); Urine Glucose Negative (Negative); Urine Nitrite Negative (Negative)
[2016-12-31 19:40] LABS: Benzodiazepine Urine Screen None Detected (None Detect)
[2017-01-01 06:48] LABS: BUN/Creatinine Ratio 15.2 (8-20); EGFR African American 117.2 (>60); EGFR Non-African American 91.1 (>60); Hematocrit 43 % (42-52); Hemoglobin 14.2 g/dl (14.0-18.0); Mean Corpuscular HGB Conc 33 g/dl (31-36); Mean Corpuscular Hemoglobin 27 pg (27-31); Mean Corpuscular Volume 82 fL (80-94); Mean Platelet Volume 9 um3 (7.4-10.4); Potassium 4.1 mmol/L (3.5-5.0); Red Blood Count 5.24 10^6/ul (4.0-5.4); Red Cell Distribution Width 14 % (10.5-15); White Blood Count 6.3 10^3/ul (3.5-10.8)
[2017-01-01] MEDS: Fluticasone NASAL SPRAY 50MCG* 16 gm SPRAY BTL BOTH NARES SCH ×2 (07:54→07:55)
[2017-01-01 07:55] VITALS: BP 104/64
[2017-01-01] MEDS ORDERED: Mometasone NASAL (NF) SPRAY BOTH NARES SCH (09:00)
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
--- NOTE | 2017-01-02 04:37 | DS ---
DISCHARGE SUMMARY: DATE OF ADMISSION: 12/31/16 DATE OF DISCHARGE: 01/01/17 PRIMARY CARE PROVIDER: Dr. Lewis. CONSULTING BRANCH BILLING PAYROLL CLERK: Dr. Vu. DISCHARGE DIAGNOSES: 1. Recurrent near syncopal episodes. 2. Palpitations. 3. Low normal cortisol level. SECONDARY DIAGNOSES: 1. Allergies. 2. Asthma. MEDICATION LIST: 1. Nasonex 1 spray to both nares daily. 2. Cetirizine 10 mg p.o. at bedtime. HOSPITAL COURSE: Mr. Dillard is a 41-year-old male with a past medical history as stated above who presented to the emergency room with complaints of palpitations and near syncope. He was in his usual state of health until last week when he traveled to [place]. He jogged and he had a difficult time with the dry climate and keeping hydrated was a challenge. He returned home and a week ago, he got a cup of coffee and he felt his heart beating irregularly, fluttering. He was lightheaded, had some dimming of his vision and he fell to the floor spilling his coffee. The symptoms passed after 5 to 10 minutes and he came to the emergency room where his workup was negative including a CTA of the chest that was negative for pulmonary embolism. The patient went back home and 2 days later, he had a similar episode with the palpitations, lightheadedness, dimming of his vision. At that point, he lied down and his symptoms resolved in 10 minutes. He went to [facility] where he was admitted. As per Dr. Vu's note, EMS strips at that time revealed sinus tachycardia with a heart rate of 120, but no other obvious arrhythmias. Records from [facility] include an echocardiogram that showed ejection fraction of 55% to 60% with borderline LVH, but no significant valvular disease. The patient was discharged home and 2 days later, the same symptoms occurred again with similar presentation. He came to the emergency room and was admitted for further evaluation. He had no significant arrhythmias while on telemetry, but he does have sinus bradycardia especially when sleeping, but of note is the patient is a young male and very fit and exercising with jogging, soccer and doing a lot of work around the house. He was seen in consultation by Dr. Vu and I was present during the consultation, so they had a long conversation and discussion about his diagnosis of syncope and near syncope of unclear etiology. Dr. Vu felt that multiple possibilities are in the differential, but arrhythmia would be #1 on the list. They also talked about autonomic dysfunction, dehydration, adrenal insufficiency, and renal dysfunction with inability to concentrate the urine. The patient did have some caffeine while in the hospital and he ambulated around the unit, but no episodes of arrhythmia or symptoms were provoked. The patient requested to be discharged home and at this point, he appears to be stable for discharge. He will follow up with Dr. Vu as outpatient to arrange for an outpatient event monitor (external versus implantable). He was advised to avoid caffeine and dehydration as outpatient and to lie down as soon as he starts to feel the prodromes of syncope. He was also advised to use his judgment while operating equipment and driving. The possibility of a stress echo and telephone answerer referral was also discussed. The patient's urinalysis was unremarkable, but his urine specific gravity was very low at 1.001. The patient thinks that he is well hydrated but not drinking excessively. This can be further explored as outpatient. After his near syncopal episode, he had a random cortisol level checked in the emergency room and his number was 6.8. This was done around 11:30 in the morning and one would expect an elevated cortisol level after a stressful event, so relative adrenal insufficiency is on the differential. The patient received a request to have a cosyntropin stimulation test done as outpatient. On his prior ED visit, the patient had a CTA of chest that was negative for PE as mentioned above, but it did show small bilateral pulmonary nodules and the recommendation was for followup noncontrast CT of the chest in 6 months to demonstrate stability. Of note is the fact that the patient is from [place] and could have been exposed to tuberculosis. His PPD status could be explored as outpatient. He is medically stable for discharge at this time. He received a letter to be off of his work until he has his event monitor placed, and he will follow up with Dr. Lewis and Dr. Vu as outpatient. PHYSICAL EXAMINATION: Vital Signs: Temperature 97.6, heart rate is 62, respiratory rate is 16, oxygen saturation 96% on room air, and blood pressure is 104/64. General: The patient is a pleasantly young male, sitting up in bed , in no acute distress. CVS: Normal S1, S2. Regular rate and rhythm. Chest: Breath sounds present bilaterally with no added sounds. Neuro: He is alert, awake, oriented x3. Able to move all 4 extremities. DIET: Regular diet. The patient was advised to avoid caffeine. ACTIVITIES: As tolerated. DISPOSITION: To home. STATUS IN THE HOSPITAL: Observation. Please keep in mind this is a summarized version of this patient's hospital stay. If you need more information, please feel free to call me at [phone] or please obtain the full medical records. TIME SPENT: Approximately 45 minutes were spent to complete this discharge. CC: Dr. Lewis; Dr. Vu * [id number]/CPS #: [id number] OPAL
[2017-01-03 17:38] LABS: Lyme Disease IgG Ab WB Negative (Negative)
== END 2017-01-01 12:50 | disposition home or self-care (01) ==
LOC: ED 10:14 → MEDTELE 14:19
PROVIDERS: ADMIT Internal Medicine; ATTEND Internal Medicine
DX: R55 Syncope and collapse (principal); R00.2 Palpitations; R42 Dizziness and giddiness; R07.9 Chest pain, unspecified; Z79.899 Other long term (current) drug therapy
CPT/HCPCS: 36415; 80048; 80053; 80307; 80320; 81003; 81015; 82533; 82550; 83605; 83735; 83880; 84443; 84484; 85025; 85610; 85730; 86617; 86618; 93005; 96360; 96361; 99283; G0378; G0480

== ENCOUNTER 2019-02-11 20:36 | Emergency (ER) | payer OTHER ==
[2019-02-11 20:40] VITALS: BP 111/70
--- NOTE | 2019-02-11 20:44 | UC ---
Skin Complaint HPI - HPI Summary HPI Summary: 43 yo male presents with puncture wound to right lower back. He tells me that he was in his attic last night and hit his lower back against a nail in the wood. Sustained a puncture wound to his right lower back. He cleansed the area well with soap and water. He tells me that he is concerned about infection and that his last tetanus shot was in 2009. He denies fever, chills, drainage from the site, or pain to the site. - History of Current Complaint Chief Complaint: UCWounds Time Seen by Provider: 02/11/19 20:44 Stated Complaint: PUNCTURE WOUND Hx Obtained From: Patient Onset/Duration: Sudden Onset Onset Severity: Mild Current Severity: None Pain Intensity: 0 - Allergy/Home Medications Allergies/Adverse Reactions: Allergies Allergy/AdvReac Type Severity Reaction Status Date / Time No Known Allergies Allergy Verified 02/11/19 20:39 Home Medications: Home Medications Albuterol HFA INHALER* [Ventolin HFA Inhaler*] PRN 02/11/19 [History] PMH/Surg Hx/FS Hx/Imm Hx Respiratory History: Asthma - Surgical History Surgical History: None - Family History Known Family History: Positive: Cardiac Disease, Other - ocular aneurysm - Social History Occupation: Employed Full-time Lives: With Family Alcohol Use: None Substance Use Type: None Smoking Status (MU): Never Smoked Tobacco - Immunization History Most Recent Tetanus Shot: 2009 Review of Systems All Other Systems Reviewed And Are Negative: Yes Constitutional: Positive: Negative Skin: Positive: Other - Puncture wound right lower back Respiratory: Positive: Negative Cardiovascular: Positive: Negative Neurovascular: Positive: Negative Neurological: Positive: Negative Psychological: Positive: Negative Physical Exam - Summary Physical Exam Summary: GENERAL: NAD. WDWN. No pain distress. SKIN: RIGHT lower back: 1mm puncture wound. NTTP. No erythema, edema, drainage, or bleeding. CHEST: No accessory muscle use. Breathing comfortably and in no distress. CV: Pulses intact. Cap refill <2seconds NEURO: Alert. PSYCH: Age appropriate behavior. Triage Information Reviewed: Yes Vital Signs: Initial Vital Signs Temp 97.9 F 02/11/19 20:37 Pulse 51 02/11/19 20:37 Resp 16 02/11/19 20:37 BP 111/70 02/11/19 20:37 Pulse Ox 100 02/11/19 20:37 Vital Signs Reviewed: Yes Course/Dx - Course Course Of Treatment: Puncture site appears to be healing very well and is without any signs of infection. Advised to monitor the area for signs of infection and be rechecked if develops. tdap was given today. - Diagnoses Provider Diagnosis: Puncture wound of back Discharge - Sign-Out/Discharge Documenting (check all that apply): Patient Departure All imaging exams completed and their final reports reviewed: No Studies - Discharge Plan Condition: Stable Disposition: HOME Patient Education Materials: Puncture Wound (DC), Tdap and Td Vaccines for Adults (ED) Referrals: Gayathri Mayer MD [Primary Care Provider] - Additional Instructions: If you develop a fever, shortness of breath, chest pain, new or worsening symptoms - please call your PCP or go to the ED immediately. The puncture site looks to be healing very well and there are no signs of infection. Please monitor the area for any redness, pain, or drainage and if you notice this please be rechecked immediately. Your tetanus shot was updated today. - Billing Disposition and Condition Condition: STABLE Disposition: Home
[2019-02-11] MEDS ORDERED: Tetan/Diph/Pertus SYR(Tdap)* 0.5 ML SYR(BOOSTRIX) use SYR IM ONE (20:45)
--- OUTSIDE RECORDS SUMMARY | 2019-02-11 20:45 | XMS REPORT | Continuity of Care Document ---
:1975 External Reference #:[id number] Author Name Gayathri Lewis M.D., R.D. Address [address] [place] [id number] Care Team Providers Name Role Phone Gayathri Lewis M.D., R.DMerrill Care Team Information Enamel Buffer Unavailable Payers Date Identification Numbers Payment Provider Subscriber Policy Number: [id number] [employer] Olivia Dillard PayID: [id number] [address] [place] [address] Family History Date Family Member(s) Observation Comments Father Healthy Mother aneurysm behind her eye Children 1 Siblings Healthy Paternal Grandfather due to AL () Maternal Grandfather due to Throat Cancer () Maternal Grandmother due to Throat Cancer () Social History Type Date Description Comments Sex Unknown Marital Status Diet Healthy, Well Balanced Not a lot of processed foods. Not too much sugar. Sleep Sleeps fairly well Occupation [employer] Tobacco Use Start: Unknown Never Smoked Cigarettes Both parents smoked a lot in his home. ETOH Use Denies alcohol use Tobacco Use Start: Unknown Patient has never smoked Smoking Status Reviewed: 02/09/19 Patient has never smoked Exercise Exercises regularly Type/Frequency Exercise Running Type/Frequency Allergies, Adverse Reactions, Alerts Description No Known Drug Allergies Medications Active Medications SIG Qnty Indications Ordering Provider Date Zyrtec Allergy 1 po qd Gayathri Lewis, 09/22/2015 10mg Brain, R.D. Capsules Nasonex spray 1 spray 51units Gayathri Lewis, 09/22/2015 50mcg/Act into each M.D., R.D. Suspension nostril twice daily as needed Proair HFA 2 puffs every 6 8.500gm Gayathri Lewis, 108(90Base) hours as needed Becka De La Paz mcg/Act Aerosol for wheezing, sob History Medications Doxycycline 2 tabs by mouth 2tabs Gayathri Lewis, 02/05/2019 - Monohydrate once Nadine.Chase R.DMerrill 02/09/2019 100mg Tablets Azithromycin 2 tabs today. 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 Doxycycline 1 by mouth twice 42caps Gayathri Lewis, 01/03/2017 - Monohydrate a day for a 21 M.DMerrill, R.D. 11/23/2018 100mg days Capsules Azithromycin 2 by mouth today 6tabs Gayathri Lewis, 12/04/2015 - 250mg then 1 by mouth Brain R.DMerrill 01/03/2017 Tablets daily for 4 days Doxycycline Hyclate 1 by mouth twice 28caps 682.8 Slime Umana 04/01/2015 - a day x 2 weeks Brain Cannon 09/21/2015 100mg Capsules -take with full glass of water Multivitamins 1 po qd 90caps Gayathri Lewis, 10/08/2013 - Capsules Brain R.DMerrill 11/24/2018 Immunizations CPT Code Status Date Vaccine Lot # [id number] Given 08/04/2016 Influenza Virus Vaccine, Quadrivalent, 3 Yr > Quad, Preserv Free [id number] Ordered 08/29/2009 Tdap (Adacel) [id number] Ordered 06/22/2015 Influenza Virus Vaccine, Quadrivalent, 3 Yr > Quad , Preserv Free Vital Signs Date Vital Result Comment 02/09/2019 1:15pm Weight 173.00 lb Weight 78.473 kg BP Systolic 100 mmHg BP Diastolic 70 mmHg Heart Rate 58 /min Body Temperature 97.6 F Respiratory Rate 16 /min Height 71 inches 5'11" BMI (Body Mass Index) 24.1 kg/m2 O2 % BldC Oximetry 98 % Waist Circumference 34 11/24/2018 11:28am Weight 174.00 lb Weight 78.926 kg BP Systolic 118 mmHg BP Diastolic 80 mmHg Heart Rate 64 /min Body Temperature 98.1 F Respiratory Rate 16 /min O2 % BldC Oximetry 96 % 01/05/2017 11:39am Weight 175.00 lb Weight 79.380 kg BP Systolic 90 mmHg BP Diastolic 60 mmHg Heart Rate 52 /min Body Temperature 98.1 F Respiratory Rate 12 /min 12/30/2016 3:13pm Weight 174.00 lb Weight 78.926 kg BP Systolic 104 mmHg BP Diastolic 62 mmHg Heart Rate 60 /min Body Temperature 98.2 F Respiratory Rate 24 /min O2 % BldC Oximetry 97 % 12/01/2015 3:31pm Weight 173.38 lb Weight 78.643 kg BP Systolic 111 mmHg BP Diastolic 69 mmHg Heart Rate 94 /min Body Temperature 99.8 F O2 % BldC Oximetry 98 % 09/22/2015 9:26am Weight 174.00 lb Weight 78.926 kg BP Systolic 108 mmHg BP Diastolic 68 mmHg Heart Rate 56 /min Height 73 inches 6'1" BMI (Body Mass Index) 23.0 kg/m2 04/17/2015 9:28am Weight 170.00 lb Weight 77.112 kg BP Systolic 108 mmHg BP Diastolic 60 mmHg Heart Rate 56 /min Body Temperature 97.6 F 04/01/2015 3:57pm Weight 170.00 lb Weight 77.112 kg BP Systolic 90 mmHg BP Diastolic 60 mmHg Heart Rate 68 /min Body Temperature 97.4 F 03/24/2015 10:37am Weight 170.00 lb Weight 77.112 kg BP Systolic 126 mmHg BP Diastolic 70 mmHg Heart Rate 56 /min O2 % BldC Oximetry 98 % 08/05/2014 3:22pm Weight 165.00 lb Weight 74.844 kg BP Systolic 98 mmHg BP Diastolic 54 mmHg Heart Rate 60 /min 05/17/2014 9:48am Weight 170.00 lb Weight 77.112 kg BP Systolic 108 mmHg BP Diastolic 62 mmHg Heart Rate 68 /min Body Temperature 97.4 F 10/08/2013 1:11pm Weight 166.00 lb Weight 75.298 kg BP Systolic 114 mmHg BP Diastolic 66 mmHg Heart Rate 72 /min Height 73.5 inches 6'1.50" BMI (Body Mass Index) 21.6 kg/m2 Results Test Date Facility Test Result H/L Range Note Comp Metabolic 11/24/2018 [facility] Sodium 140 mmol/ L N 135-145 Panel [phone] Potassium 4.4 mmol/L N 3.5-5.0 Chloride 105 mmol/L N 101-111 Co2 Carbon Dioxide 29 mmol/L N 22-32 Anion Gap 6 mmol/L N 2-11 Glucose 92 mg/dL N 70-100 Blood Urea Nitrogen 14 mg/dL N 6-24 Creatinine 1.02 mg/dL N 0.67-1.17 BUN/Creatinine Ratio 13.7 N 8-20 Calcium 9.5 mg/dL N 8.6-10.3 Total Protein 6.9 g/dL N 6.4-8.9 Albumin 4.4 g/dL N 3.2-5.2 Globulin 2.5 g/dL N 2-4 Albumin/Globulin Ratio 1.8 N 1-3 Total Bilirubin 0.40 mg/dL N 0.2-1.0 Alkaline Phosphatase 73 U/L N 34-104 Alt 17 U/L N 7-52 Ast 17 U/L N 13-39 Egfr Non- 80.1 >60 Egfr 96.9 >60 1 Lipid Profile 11/24/2018 [facility] Triglycerides 85 mg/dL 2 (Trig/Chol/HDL) [phone] Cholesterol 218 mg/dL 3 HDL Cholesterol 49.9 mg/dL 4 LDL Cholesterol 151 mg/dL 5 Laboratory test 11/24/2018 [facility] Hemoglobin A1c 5.2 % N 4.0-5.6 6 finding [phone] (Glyco HGB) CBC Auto Diff 11/24/2018 [facility] White Blood 5.7 N 3.5-10.8 [phone] Count 10^3/uL Red Blood Count 5.31 10^6/uL N 4.18-5.48 Hemoglobin 14.9 g/dL N 14.0-18.0 Hematocrit 43 % N 36-46 Mean Corpuscular Volume 81 fL N 80-94 Mean Corpuscular Hemoglobin 28 pg N 27-31 Mean Corpuscular HGB Conc 35 g/dL N 31-36 Red Cell Distribution Width 13 % N 10.5-15 Platelet Count 180 10^3/uL N 150-450 Mean Platelet Volume 9.0 fL N 7.4-10.4 Abs Neutrophils 3.2 10^3/uL N 1.5-7.7 Abs Lymphocytes 1.8 10^3/uL N 1.0-4.8 Abs Monocytes 0.3 10^3/uL N 0-0.8 Abs Eosinophils 0.4 10^3/uL N 0-0.6 Abs Basophils 0 10^3/uL N 0-0.2 Abs Nucleated RBC 0 10^3/uL Granulocyte % 56.6 % Lymphocyte % 31.1 % Monocyte % 4.8 % Eosinophil % 6.7 % Basophil % 0.8 % Nucleated Red Blood Cells % 0.1 Laboratory test 01/03/2017 [facility] Cortisol 8.91 g/dL N 7, 8 finding [phone] Laboratory test 01/03/2017 [facility] Cortisol 11.48 N 9, 10 finding [phone] [phone] Laboratory test 12/31/2016 [facility] Lactic Acid 0.7 mmol/L N 0.5-2 11 finding [phone] CBC Auto Diff 12/31/2016 [facility] White Blood 6.4 10^3/uL N 3.5-1 [phone] Count 0.8 Red Blood Count 5.54 10^6/uL High 4.0-5.4 Hemoglobin 15.1 g/dL N 14.0-18.0 Hematocrit 45 % N 42-52 Mean Corpuscular Volume 81 fL N 80-94 Mean Corpuscular Hemoglobin 27 pg N 27-31 Mean Corpuscular HGB Conc 34 g/dL N 31-36 Red Cell Distribution Width 14 % N 10.5-15 Platelet Count 152 10^3/uL N 150-450 Mean Platelet Volume 9 um3 N 7.4-10.4 Abs Neutrophils 4.4 10^3/uL N 1.5-7.7 Abs Lymphocytes 1.4 10^3/uL N 1.0-4.8 Abs Monocytes 0.3 10^3/uL N 0-0.8 Abs Eosinophils 0.2 10^3/uL N 0-0.6 Abs Basophils 0.1 10^3/uL N 0-0.2 Abs Nucleated RBC 0 10^3/uL N Granulocyte % 69.7 % N 38-83 Lymphocyte % 22.4 % Low 25-47 Monocyte % 4.2 % N 1-9 Eosinophil % 2.8 % N 0-6 Basophil % 0.9 % N 0-2 Nucleated Red Blood Cells % 0.1 N Urinalysis Profile 12/31/2016 [facility] Urine Color Straw N [phone] Urine Appearance Clear N Urine Specific Dix 1.006 Low 1.010-1.030 Urine pH 7.0 N 5-9 Urine Urobilinogen Negative N Negative Urine Ketones Negative N Negative Urine Protein Negative N Negative Urine Leukocytes Negative N Negative Urine Blood 1+ Abnormal Negative Urine Nitrite Negative N Negative Urine Bilirubin Negative N Negative Urine Glucose Negative N Negative Urine White Blood Cell Absent N Absent Urine Red Blood Cell 1+(3-5/hpf) Abnormal Absent Urine Bacteria Absent N Absent Inr/Protime 12/31/2016 [facility] Inr 0.97 N 0.89- 1.11 [phone] Laboratory test 12/31/2016 [facility] Partial 28.5 seconds N 26.0-36.3 finding [phone] Thrombo Time PTT Comp Metabolic 12/31/2016 [facility] Sodium 136 mmol/ L N 133-145 Panel [phone] Potassium 3.9 mmol/L N 3.5-5.0 Chloride 105 mmol/L N 101-111 Co2 Carbon Dioxide 27 mmol/L N 22-32 Anion Gap 4 mmol/L N 2-11 Glucose 100 mg/dL N 70-100 Blood Urea Nitrogen 14 mg/dL N 6-24 Creatinine 0.92 mg/dL N 0.67-1.17 BUN/Creatinine Ratio 15.2 N 8-20 Calcium 9.5 mg/dL N 8.6-10.3 Total Protein 7.2 g/dL N 6.4-8.9 Albumin 4.2 g/dL N 3.2-5.2 Globulin 3.0 g/dL N 2-4 Albumin/Globulin Ratio 1.4 N 1-3 Total Bilirubin 0.40 mg/dL N 0.2-1.0 Alkaline Phosphatase 70 U/L N 34-104 Alt 36 U/L N 7-52 Ast 22 U/L N 13-39 Egfr Non- 91.1 N >60 Egfr 117.2 N >60 12 Laboratory test 12/31/2016 [facility] Magnesium 2.0 mg/dL N 1.9-2.7 finding [phone] Creatine Kinase 86 U/L N 10-223 Troponin-I (TnI) 0.00 ng/mL N <0.04 13 TSH (Thyroid Stimulating Horm) 1.15 mcIU/mL N 0.34-5.60 B-Type Natriuretic Peptide BNP 31 pg/mL N 14 Alcohol < 10 mg/dL N <10 Cortisol 6.84 g/dL N 15 Lyme Disease Serology Equivocal N Negative 16 Lyme Western 12/31/2016 [facility] Lyme Disease Negative N Negative Blot [phone] IgG Ab WB Lyme Disease IgG Bands Present p45, p41, p18, kDa N Lyme Disease IgM Ab WB Positive N Negative Lyme Disease IgM Bands Present p41, p23, kDa N Lyme Disease Interpretation See Comment N 17 Laboratory test 12/27/2016 [facility] Troponin I 0.00 ng/mL N <0.04 18 finding [phone] Flu Test A, B, Or 12/01/2015 In House Lab Influenza A NEG A & B,Binaxn (607)- - Antigen Influenza B Antigen NEG Lipid Profile 09/18/2015 [facility] Triglycerides 69 mg/dL N 19 (Trig/Chol/HDL) [phone] Cholesterol 176 mg/dL N 20 HDL Cholesterol 44.0 mg/dL N 21 LDL Cholesterol 118 mg/dL N 22 Comp Metabolic Panel 09/18/2015 [facility] Sodium 138 mmol/L N 133-145 [phone] Potassium 4.0 mmol/L N 3.5-5.0 Chloride 106 mmol/L N 101-111 Co2 Carbon Dioxide 28 mmol/L N 22-32 Anion Gap 4 mmol/L N 2-11 Glucose 105 mg/dL High 70-100 Blood Urea Nitrogen 13 mg/dL N 6-24 Creatinine 1.03 mg/dL N 0.67-1.17 BUN/Creatinine Ratio 12.6 N 8-20 Calcium 9.1 mg/dL N 8.6-10.3 Total Protein 6.6 g/dL N 6.4-8.9 Albumin 4.5 g/dL N 3.2-5.2 Globulin 2.1 g/dL N 2-4 Albumin/Globulin Ratio 2.1 N 1-3 Total Bilirubin 0.50 mg/dL N 0.2-1.0 Alkaline Phosphatase 58 U/L N 34-104 Alt 17 U/L N 7-52 Ast 17 U/L N 13-39 Egfr Non- 80.4 N >60 Egfr 103.4 N >60 23 Laboratory test 09/18/2015 [facility] Hemoglobin A1c 5.0 % N Less than 24 finding [phone] (Glyco HGB) 6.0 Laboratory test 03/23/2015 [facility] Erythrocyte Sed 4 mm/Hr N 0-14 finding [phone] Rate CBC Auto Diff 03/23/2015 [facility] White Blood 6.1 N 4.8-10.8 [phone] Count 10^3/uL Red Blood Count 5.28 10^6/uL N 4.0-5.4 Hemoglobin 14.5 g/dL N 14.0-18.0 Hematocrit 44 % N 42-52 Mean Corpuscular Volume 83 fL N 80-94 Mean Corpuscular Hemoglobin 28 pg N 27-31 Mean Corpuscular HGB Conc 33 g/dL N 31-36 Red Cell Distribution Width 13 % N 10.5-15 Platelet Count 167 10^3/uL N 150-450 Mean Platelet Volume 8 um3 N 7.4-10.4 Abs Neutrophils 3.5 10^3/uL N 1.5-7.7 Abs Lymphocytes 2.1 10^3/uL N 1.0-4.8 Abs Monocytes 0.3 10^3/uL N 0-0.8 Abs Eosinophils 0.2 10^3/uL N 0-0.6 Abs Basophils 0 10^3/uL N 0-0.2 Abs Nucleated RBC 0.01 10^3/uL N Granulocyte % 56.8 % N 38-83 Lymphocyte % 33.4 % N 25-47 Monocyte % 5.1 % N 1-9 Eosinophil % 4.1 % N 0-6 Basophil % 0.6 % N 0-2 Nucleated Red Blood Cells % 0.1 N Laboratory test 03/23/2015 [facility] C Reactive 6.09 mg/L High < 5.00 25 finding [phone] Protein Comp Metabolic 03/23/2015 [facility] Sodium 137 N 133-145 Panel [phone] mmol/L Potassium 3.6 mmol/L N 3.5-5.0 Chloride 103 mmol/L N 101-111 Co2 Carbon Dioxide 30 mmol/L N 22-32 Anion Gap 4 mmol/L N 2-11 Glucose 86 mg/dL N 70-100 Blood Urea Nitrogen 16 mg/dL N 6-24 Creatinine 1.03 mg/dL N 0.67-1.17 BUN/Creatinine Ratio 15.5 N 8-20 Calcium 9.4 mg/dL N 8.6-10.3 Total Protein 7.1 g/dL N 6.4-8.9 Albumin 4.5 g/dL N 3.2-5.2 Globulin 2.6 g/dL N 2-4 Albumin/Globulin Ratio 1.7 N 1-3 Total Bilirubin 0.40 mg/dL N 0.2-1.0 Alkaline Phosphatase 59 U/L N 34-104 Alt 20 U/L N 7-52 Ast 37 U/L N 13-39 Egfr Non- 80.8 N >60 Egfr 103.9 N >60 26 Testosterone 08/05/2014 [facility] Free 6.1 Abnormal 9-30 27 Free & Total [phone] Testosterone ng/dL ng/dl Testosterone 275 ng/dL N 240-950 28 Laboratory test 08/05/2014 [facility] TSH (Thyroid 0.88 IU/mL N 0.34-5.60 finding [phone] Stimulating Horm) Comp Metabolic 08/05/2014 [facility] Sodium 138 mmol/ L N 133-145 Panel [phone] Potassium 3.9 mmol/L N 3.5-5.0 Chloride 104 mmol/L N 101-111 Co2 Carbon Dioxide 31 mmol/L N 22-32 Anion Gap 3 mmol/L N 2-11 Glucose 79 mg/dL N 70-100 Blood Urea Nitrogen 22 mg/dL N 6-24 Creatinine 0.98 mg/dL N 0.67-1.17 BUN/Creatinine Ratio 22.4 High 8-20 Calcium 9.4 mg/dL N 8.6-10.3 Total Protein 6.7 g/dL N 6.4-8.9 Albumin 4.6 g/dL N 3.2-5.2 Globulin 2.1 g/dL N 2-4 Albumin/Globulin Ratio 2.2 N 1-3 Total Bilirubin 0.30 mg/dL N 0.2-1.0 Alkaline Phosphatase 60 U/L N 34-104 Alt 11 U/L N 7-52 Ast 14 U/L N 13-39 Egfr Non- 85.6 N >60 Egfr 110.1 N >60 29 Lipid Profile 08/05/2014 [facility] Triglycerides 92 mg/dL N 30 (Trig/Chol/HDL) [phone] Cholesterol 176 mg/dL N 31 HDL Cholesterol 44.7 mg/dL N 32 LDL Cholesterol 113 mg/dL N 33 Lipid Profile 10/08/2013 [facility] Triglycerides 50 mg/dL 40-200 (Trig/Chol/HDL) [phone] Cholesterol 208 mg/dL High Less than 200 HDL Cholesterol 53 mg/dL 40-60 34 Cholesterol/HDL Ratio 3.9 Average 1-4.44 LDL Cholesterol 145.0 High Less Than 100 35 Comp Metabolic Panel 10/08/2013 [facility] Sodium 139 mmol/L 133-145 [phone] Potassium 3.9 mmol/L 3.5-5.0 Chloride 102 mmol/L 101-111 Co2 Carbon Dioxide 28.0 mmol/L 22-32 Anion Gap 9.0 mmol/L 2-11 Glucose 90 mg/dL 70-100 Blood Urea Nitrogen 16 mg/dL 6-24 Creatinine 1.00 mg/dL 0.50-1.40 BUN/Creatinine Ratio 16.0 8-20 Calcium 9.3 mg/dL 8.1-9.9 Total Protein 7.0 g/dL 6.2-8.1 Albumin 4.3 g/dL 3.6-5.4 Globulin 2.7 g/dL 2-4 Albumin/Globulin Ratio 1.6 1-3 Total Bilirubin 0.8 mg/dL 0.4-1.5 Alkaline Phosphatase 64 U/L 30-110 Alt 26 U/L 14-54 Ast 27 U/L 12-42 Egfr Non- 84.1 >60 Egfr 108.1 >60 36 Laboratory test 10/08/2013 [facility] Hemoglobin A1c 5.3 % Less than 37 finding [phone] 6.0 Urine DIP 10/08/2013 In House Lab Leukocytes NEG Neg (607)- - Urine Nitrites NEG Neg Urine pH 6 5-6 Total Protein, Urine NEG Neg Urine Glucose NORM Norm Urine Ketones NEG Neg Urobilinogen NORM Norm Urine Bilirubin NEG Neg Urine Blood NEG Neg Specific Dix 1.020 1.01-1.02 1 Because ethnic data is not always readily available, this report includes an eGFR for both -Americans and non- Americans. The National Kidney Disease Education Program (NKDEP) does not endorse the use of the MDRD equation for patients that are not between the ages of 18 and 70, are , have extremes of body size, muscle mass, or nutritional status, or are non- or non-. According to the National Kidney Foundation, irrespective of diagnosis, the stage of the disease is based on the level of kidney function: Stage Description GFR(mL/min/1.73 m(2)) 1 Kidney damage with normal or decreased GFR 90 2 Kidney damage with mild decrease in GFR 60-89 3 Moderate decrease in GFR 30-59 4 Severe decrease in GFR 15-29 5 Kidney failure <15 (or dialysis) 2 Desirable: <150 Borderline High: 150-199 High: 200-499 Very High: >500 3 Desirable: <200 Borderline High: 200-239 High: >239 4 Low: <40 Desirable: 40-60 High: >60 5 Desirable: <100 Near Optimal: 100-129 Borderline High: 130-159 High: 160-189 Very High: >189 6 Therapeutic target for the treatment of diabetes mellitus patients is <7% HBA1C, and in selective patients <6.0%. Please refer to [place] [employer] Association diabetic care guidelines for further information. 7 Comment: 60 min level- fax to Dr Lewis 8 AM 8.7-22.4 PM <10 9 Comment: fax order to Dr Lewis- 30 min level 10 AM 8.7-22.4 PM <10 11 [place] Severe Sepsis and Septic Shock Management Bundle Measure requires all lactic acids initially measuring >2.0 mmol/L be repeated. 12 Because ethnic data is not always readily available, this report includes an eGFR for both -Americans and non- Americans. The National Kidney Disease Education Program (NKDEP) does not endorse the use of the MDRD equation for patients that are not between the ages of 18 and 70, are , have extremes of body size, muscle mass, or nutritional status, or are non- or non-. According to the National Kidney Foundation, irrespective of diagnosis, the stage of the disease is based on the level of kidney function: Stage Description GFR(mL/min/1.73 m(2)) 1 Kidney damage with normal or decreased GFR 90 2 Kidney damage with mild decrease in GFR 60-89 3 Moderate decrease in GFR 30-59 4 Severe decrease in GFR 15-29 5 Kidney failure <15 (or dialysis) 13 99th percentile=0.04 ng/mL Troponin results at [facility] and [facility] are not interchangeable. 14 >100 to <200 pg/mL: likely compensated congestive heart failure (CHF) 200 to 400 pg/mL: likely moderate CHF >400 pg/mL: likely moderate to severe CHF 15 AM 8.7-22.4 PM <10 16 Not diagnostic. Supplemental testing ordered by reflex. Hemolyzed Test Performed by: [facility] [employer] - [address] [address] 17 Consistent with early infection with Borrelia burgdorferi. A new serum specimen should be submitted in 14-21 days to demonstrate seroconversion of IgG. IgM blot criteria is of diagnostic utility only during the first 4 weeks of early Lyme disease. ADDITIONAL INFORMATION CDC criteria require >=5 bands for IgG or >=2 bands for IgM for the Immunoblot to be considered positive. Bands (e.g.,p41) may be detected in patients without Lyme disease, and patterns not meeting the CDC criteria should be interpreted with caution. Immunoblot should be ordered only on specimens that are positive or equivocal by a FDA-licensed Lyme disease antibody screening test (e.g., EIA). Test Performed by: [facility] [employer] - [address] [address] 18 99th percentile=0.04 ng/mL Troponin results at [facility] and [facility] are not interchangeable. 19 Desirable <150 Borderline high 150-199 High 200-499 Very High >500 20 Desirable <200 Borderline high 200-239 High >239 21 Low <40 Desirable: 40-60 High: >60 22 Desirable: <100 mg/dL Near Optimal: 100-129 mg/dL Borderline High: 130-159 mg/dL High: 160-189 mg/dL Very High: >189 mg/dL 23 Because ethnic data is not always readily available, this report includes an eGFR for both -Americans and non- Americans. The National Kidney Disease Education Program (NKDEP) does not endorse the use of the MDRD equation for patients that are not between the ages of 18 and 70, are , have extremes of body size, muscle mass, or nutritional status, or are non- or non-. According to the National Kidney Foundation, irrespective of diagnosis, the stage of the disease is based on the level of kidney function: Stage Description GFR(mL/min/1.73 m(2)) 1 Kidney damage with normal or decreased GFR 90 2 Kidney damage with mild decrease in GFR 60-89 3 Moderate decrease in GFR 30-59 4 Severe decrease in GFR 15-29 5 Kidney failure <15 (or dialysis) 24 Therapeutic target for the treatment of diabetes Mellitus patients is <7% HBA1C, and in selective patients <6.0%.Please refer to [place] [employer] Diabetic care guidelines for further information. 25 Acute inflammation: >10.00 26 Because ethnic data is not always readily available, this report includes an eGFR for both -Americans and non- Americans. The National Kidney Disease Education Program (NKDEP) does not endorse the use of the MDRD equation for patients that are not between the ages of 18 and 70, are , have extremes of body size, muscle mass, or nutritional status, or are non- or non-. According to the National Kidney Foundation, irrespective of diagnosis, the stage of the disease is based on the level of kidney function: Stage Description GFR(mL/min/1.73 m(2)) 1 Kidney damage with normal or decreased GFR 90 2 Kidney damage with mild decrease in GFR 60-89 3 Moderate decrease in GFR 30-59 4 Severe decrease in GFR 15-29 5 Kidney failure <15 (or dialysis) 27 ADDITIONAL INFORMATION Testing performed by [facility]. 28 ADDITIONAL INFORMATION Testing performed by Liquid Chromatography-Tandem Mass Spectrometry (LC-MS/MS). Test Performed by: [facility] [address] [address] Real Estate Subagent: Helder Lr M.D. 29 Because ethnic data is not always readily available, this report includes an eGFR for both -Americans and non- Americans. The National Kidney Disease Education Program (NKDEP) does not endorse the use of the MDRD equation for patients that are not between the ages of 18 and 70, are , have extremes of body size, muscle mass, or nutritional status, or are non- or non-. According to the National Kidney Foundation, irrespective of diagnosis, the stage of the disease is based on the level of kidney function: Stage Description GFR(mL/min/1.73 m(2)) 1 Kidney damage with normal or decreased GFR 90 2 Kidney damage with mild decrease in GFR 60-89 3 Moderate decrease in GFR 30-59 4 Severe decrease in GFR 15-29 5 Kidney failure <15 (or dialysis) 30 Desirable <150 Borderline high 150-199 High 200-499 Very High >500 31 Desirable <200 Borderline high 200-239 High >239 32 Low <40 Desirable: 40-60 High: >60 33 Desirable <100 Near Optimal 100-129 Borderline high 130-159 High 160-189 Very High >189 34 HDL Interpretation: Undesirable: High Risk: Less than 40 mg/dL Desirable: Low Risk: Greater than 60 mg/dL 35 LDL Interpretation: Low Risk Optimal Level: LDL Less than 100 mg/dL Near or Above Optimal: LDL 100-129 mg/dL Borderline High Risk: LDL 130-159 mg/dL High Risk: LDL 160-189 mg/dL Very High Risk: LDL Greater than 189 mg/dL 36 Because ethnic data is not always readily available, this report includes an eGFR for both -Americans and non- Americans. The National Kidney Disease Education Program (NKDEP) does not endorse the use of the MDRD equation for patients that are not between the ages of 18 and 70, are , have extremes of body size, muscle mass, or nutritional status, or are non- or non-. According to the National Kidney Foundation, irrespective of diagnosis, the stage of the disease is based on the level of kidney function: Stage Description GFR(mL/min/1.73 m(2)) 1 Kidney damage with normal or decreased GFR 90 2 Kidney damage with mild decrease in GFR 60-89 3 Moderate decrease in GFR 30-59 4 Severe decrease in GFR 15-29 5 Kidney failure <15 (or dialysis) 37 Therapeutic target for the treatment of diabetes Mellitus patients is <7% HBA1C, and in selective patients <6.0%.Please refer to [place] [employer] Diabetic care guidelines for further information. Encounters Type Date Location Provider Dx Diagnosis Office Visit 11/24/[address] [facility] Gayathri Lewis Z13.1 Encounter for 11:45a Brain, R.D. screening for diabetes mellitus Z13.220 Encounter for screening for lipoid disorders R91.8 Other nonspecific abnormal finding of lung field Office Visit 01/05/2017 11:30a Main Office Gayathri Lewis R55 Syncope and M.DMerrill, R.D. collapse R91.8 Other nonspecific abnormal finding of lung field Office Visit 12/30/2016 3:00p Main Office Precious Barba5 Syncope and MD collapse Office Visit 12/01/2015 3:15p Main Office Gayathri Lewis J06.9 Acute upper M.D., R.D. respiratory infection, unspecified Office Visit 09/22/2015 9:30a Main Office Gayathri Lewis Z00.00 Encntr for general M.D., R.D. adult medical exam w/o abnormal findings Z13.220 Encounter for screening for lipoid disorders T78.40xA Allergy, unspecified, initial encounter Office Visit 04/17/2015 9:30a Main Office Gayathri Lewis, 355.8 Mononeuritis Lower M.D., R.D. Limb Unspec 682.8 Cellulitis & Abscess Other Spec Sites Office Visit 04/01/2015 3:30p Main Office Slime Umana 355.8 Mononeuritis Lower Blegen, M.D. 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 Leola De La Paz, RRudy Limb Unspec Office Visit 08/05/2014 3:30p Main Office Gayathri Lewis, 302.72 Erectile Becka De La Paz Dysfunction Office Visit 05/17/2014 9:30a Main Office Erika Yenny, 079.99 Viral Infection BODY STYLIST-C Unspec Office Visit 10/08/2013 1:45p Main Office Gayathri Lewis, V70.0 Examination General Brain, RRudy Medical Routine [facility] 995.3 Allergy Unspec Plan of Treatment Future Appointment(s):04/20/2019 9:00 am - [facility] at [facility]02/09/2019 - Gayathri Lewis M.D., R.DMerrillZ00.00 Encounter for general adult medical examination without abnoNew Labs:Lipid Profile (Trig/Chol/ HDL), Scheduled: 04/13/19Recommendations:The 5 Year Plan for your preventive health care is: Flu shot yearly. Annual exam at [facility]. Regular dental care. Eye exam yearly. Check your cholesterol and screen for diabetes yearly. We will recheck your cholesterol in 2-3 months. Healthy eating and regular exercise. Managing your stress as well as possible.[id number].xxxA Tick biteRecommendations:Continue to monitor for any new symptoms for the next few weeks, especially fever, joint or muscle pain, rash. Please let our office know if you have any of these symptoms or any other questions.
== END 2019-02-11 20:55 | disposition home or self-care (01) ==
LOC: UCEAST 20:36
DX: S31.030A Puncture wound without foreign body of lower back and pelvis without penetration into retroperitoneum, initial encounter (principal); W22.09XA Striking against other stationary object, initial encounter; Y92.008 Other place in unspecified non-institutional (private) residence as the place of occurrence of the external cause; J45.909 Unspecified asthma, uncomplicated
CPT/HCPCS: 90471; 90715; 99211; G0463